=== PATIENT | male | born 1980 | race Caucasian/White ===

== ENCOUNTER 2017-08-22 17:43 | Emergency (ER) | payer MEDICAID ==
[~2017-08-22] VITALS: Ht 154.9 cm; Wt 103.2 kg
[2017-08-22 17:51] VITALS: BP 125/63
--- NOTE | 2017-08-22 17:59 | NUR ---
PATIENT TO ER BED 3
--- NOTE | 2017-08-22 18:10 | NUR ---
DR. ANDERSON EVALUATING PATIENT BEDSIDE
--- NOTE | 2017-08-22 18:15 | NUR ---
C/O SOB X 1 WK WITH HEADACHE 10/10; RESP EVEN AND UNLABORED, SLIGHTLY TACHYPNIC AT 28/MIN. LS-EXP WHEEZES YOSELIN. DENIES ANY CP. SOB WITH MILD EXERTION PER PT. INTEMITTERNT GRADUAL ONSET HEADCHE FOR 4 DAYS, DENIES ANY VISUAL DISTURBANCES. HX; DENIES RX; DENIES
[2017-08-22] MEDS ORDERED: NACL 0.9% 1,000 ML IV ONE (18:30)
[2017-08-22] MEDS ORDERED: ACETAMINOPHEN EXTRA STRENGTH 500 MG TAB ONE (18:51)
--- NOTE | 2017-08-22 18:54 | NUR ---
NOTED PT TO BE HOT TO TOUCH, PT SPIKED TEMP 100.2, MEDICATED PER PROTOCOL
[2017-08-22] MEDS ORDERED: ACETAMINOPHEN EXTRA STRENGTH 500 MG TAB PO ONE (18:55)
[2017-08-22 18:56] LABS: BASOPHILS # (AUTO) 0.4 K/uL (0.00-0.22); EOSINOPHILS # (AUTO) 0.5 K/uL (0-0.4); HEMATOCRIT 46.1 % (36-52); HEMOGLOBIN 15.5 g/dL (12.0-18.0); LYMPHOCYTES # (AUTO) 3.7 K/uL (2.0-11.5); MEAN CORPUSCULAR HEMOGLOBIN 29 pg (27-31); MEAN CORPUSCULAR HGB CONC 34 g/dL (33-37); MEAN CORPUSCULAR VOLUME 88 fL (80-94); MONOCYTES # (AUTO) 1.1 K/uL (0.8-1.0); NEUTROPHILS # (AUTO) 5.1 K/uL (1.8-7.7); PLATELET COUNT (AUTO) 243 K/uL (140-450); RED BLOOD CELL COUNT(AUTO) 5.26 MIL/uL (4.20-6.10); RED CELL DISTRIBUTION WIDTH 12.7 % (11.6-13.7); WHITE BLOOD COUNT (AUTO) 10.8 K/uL (4.8-10.8)
--- NOTE | 2017-08-22 18:57 | NUR ---
PER PT TO CALL HIS AND INFORM HER ERICA THAT HE IS IN ER, NUMBER GIVEN TO MICA [facility] [employer] TO ASSIT
[2017-08-22 19:10] LABS: PROTHROMBIN TIME 11.9 secs (10.8-13.4)
[2017-08-22 19:16] LABS: ANION GAP 12.9 (8-16); CARBON DIOXIDE 27.2 mmol/L (21-32); CREATININE 1.1 mg/dL (0.7-1.3); POTASSIUM 4.1 mmol/L (3.5-5.1); TOTAL BILIRUBIN 1.1 mg/dL (0.0-1.0)
[2017-08-22] MEDS ORDERED: ALBUTEROL SULFATE/IPRATROPIU 3 ML SOL IH ONE ×2 (19:40→19:47)
--- NOTE | 2017-08-22 20:15 | NUR ---
Patient discharged with v/s stable. Written and verbal after care instructions given and explained. Patient alert, oriented and verbalized understanding of instructions. Ambulatory with steady gait. All questions addressed prior to discharge. ID band removed. Patient advised to follow up with PMD. Rx of DEXTROMETHORPHAN AND PROMETHAZINE given. Patient educated on indication of medication including possible reaction and side effects. Opportunity to ask questions provided and answered. IV removed, catheter intact and site benign. Applied folded 4x4 gauze and tape to stop bleeding.
[2017-08-22 20:45] VITALS: BP 114/69
== END 2017-08-22 20:15 | disposition home or self-care (01) ==
LOC: MED 17:43
DX: B34.9 Viral infection, unspecified (principal)
CPT/HCPCS: 36415; 71045; 80053; 84484; 85025; 85610; 85730; 87804; 93005; 94640; 96360; 99285; J7620